=== PATIENT | female | born 1945 | race Caucasian/White ===

== ENCOUNTER → 2021-07-17 | Outpatient (CLI) | payer MEDICARE | END | disposition home or self-care (01) | LOC: RAH 12:40 | PROVIDERS: ATTEND Family Medicine | DX: Z12.31 Encounter for screening mammogram for malignant neoplasm of breast (principal) | CPT/HCPCS: 77067 ==

== ENCOUNTER → 2022-07-30 | Outpatient (CLI) | payer MEDICARE | END | disposition home or self-care (01) | LOC: RAH 13:03 | PROVIDERS: ATTEND Family Medicine | DX: Z12.31 Encounter for screening mammogram for malignant neoplasm of breast (principal) | CPT/HCPCS: 77067 ==

== ENCOUNTER → 2024-02-05 | Outpatient (CLI) | payer MEDICARE | END | disposition home or self-care (01) | LOC: RAH 09:31 | PROVIDERS: ATTEND Family Medicine | DX: Z12.31 Encounter for screening mammogram for malignant neoplasm of breast (principal); R92.323 Mammographic fibroglandular density, bilateral breasts | CPT/HCPCS: 77067 ==

== ENCOUNTER → 2025-05-09 | Outpatient (CLI) | payer MEDICARE ==
--- NOTE | 2025-05-10 11:21 | HMCIMG ---
Right BREAST ULTRASOUND: CLINICAL HISTORY: Mastodynia.. Finding: Real-time examination of the [right/left] breast demonstrates homogeneous echotexture throughout the breast without evidence of focal solid or cystic masses. Right breast at 9:00 there is a intramammary lipoma measuring 5.8 x 1.8 x 4.5 cm. There is benign-appearing right axillary lymph node IMPRESSION: Right breast at 9:00 there is a intramammary lipoma measuring 5.8 x 1.8 x 4.5 cm.. There is no solid hypoechoic lesion seen. I would recommend annual mammography with tomography with bilateral breast sonogram. FINAL ASSESSMENT: ACR: BI-RAD- 2. Benign Finding.
== END | disposition home or self-care (01) ==
LOC: RAH 08:42
PROVIDERS: ATTEND Family Medicine
DX: N60.01 Solitary cyst of right breast (principal); N64.4 Mastodynia; D17.79 Benign lipomatous neoplasm of other sites
CPT/HCPCS: 76641; 77066